=== PATIENT | male | born 1960 | race Caucasian/White ===

== ENCOUNTER 2024-12-29 06:21 | Day surgery (SDC) | payer OTHER, SELFPAY | END 2024-12-29 11:32 | disposition home or self-care (01) | LOC: GI 06:21 | PROVIDERS: ATTENDING PHYSICIAN Surgery | DX: Z12.11 Encounter for screening for malignant neoplasm of colon (principal); R19.5 Other fecal abnormalities; K57.30 Diverticulosis of large intestine without perforation or abscess without bleeding; K64.8 Other hemorrhoids; K63.5 Polyp of colon | CPT/HCPCS: 45385; 88305 ==